=== PATIENT | female | born 1990 | race Native Hawaiian/Other Pacific Islander ===

== ENCOUNTER 2018-06-01 19:22 | Emergency (ER) | payer OTHER ==
[2018-06-01] MEDS ORDERED: ACETAMINOPHEN 500 MG TABLET PO STA (20:07)
--- NOTE | 2018-06-01 20:22 | ED Physician Documentation ---
History of Present Illness - Stated complaint Stated Complaint: MANZANARES/SORE THROAT/BODY ACHE - Chief complaint Chief Complaint: General - Additonal information Additional information: 27-year-old female presents the emergency department with 3 days of nasal congestion, ear pain, sore throat, chills, feeling feverish and body aches. Symptoms improved with antipyretics. Symptoms are described as mild. No other associated symptoms. Review of Systems Constitutional: reports: Fever, Chills, Myalgias, Fatigue Eyes: denies: Discharge Ears: reports: Ear pain Nose: reports: Rhinorrhea / runny nose, Congestion Throat: reports: Sore throat Respiratory: denies: Wheezing GI: denies: Abdominal Pain : denies: Dysuria Skin: denies: Rash PD PAST MEDICAL HISTORY - Past Medical History Past Medical History: No - Past Surgical History Past Surgical History: No - Present Medications Home Medications: Ambulatory Orders Medication Instructions Recorded Confirmed No Known Home Medications 06/01/18 06/01/18 - Allergies Allergies/Adverse Reactions: Allergies Allergy/AdvReac Type Severity Reaction Status Date / Time No Known Drug Allergies Allergy Verified 06/01/18 19:33 - Social History Does the pt smoke?: Yes Smoking Status: Former smoker Does the pt drink ETOH?: Yes Does the pt have substance abuse?: No - Immunizations Immunizations are current?: Yes PD ED PE NORMAL - General General: Alert and oriented X 3, No acute distress - HEENT HEENT: Atraumatic, PERRL, EOMI, Ears normal, Moist mucous membranes - Neck Neck: Supple, no meningeal sign, No adenopathy - Cardiac Cardiac: RRR, Strong equal pulses - Abdomen Abdomen: Soft, Non tender - Derm Derm: Normal color - Extremities Extremities: No deformity, No calf tenderness / cord - Neuro Neuro: Alert and oriented X 3, Normal speech - Psych Psych: Normal mood Results - Vitals Vitals: Vital Signs - 24 hr 06/01/18 19:30 Temperature 36.3 C L Heart Rate 65 Respiratory 16 Rate Blood Pressure 110/68 O2 Saturation 100 Oxygen O2 Source Room air - Labs Labs: Laboratory Tests 06/01/18 19:35 Group A Strep Rapid Negative PD MEDICAL DECISION MAKING - ED course ED course: The patient's symptoms are consistent with a viral process. The patient appears appropriate for discharge and ongoing outpatient management. Patient is well- hydrated, nontoxic and well-appearing and there is no clinical evidence of sepsis or bacterial etiology. I discussed warning signs and recommended returning to the emergency department for any worsening or any concerns. Departure - Departure Disposition: 01 Home, Self Care Clinical Impression: Viral URI Condition: Good Instructions: ED Viral Syndrome, ED Upper Resp Infec No Abx Tx Follow-Up: MONSERRAT NEGRON PA-C [Primary Care Provider] - Within 1 week Comments: Please return to the emergency department for worsening symptoms or any concerns
[2018-06-01 20:42] VITALS: BP 112/66
== END 2018-06-01 20:41 | disposition home or self-care (01) ==
LOC: ED 19:22
DX: J06.9 Acute upper respiratory infection, unspecified (principal); Z87.891 Personal history of nicotine dependence
CPT/HCPCS: 87070; 87430; 99282; 99283; A9270

== ENCOUNTER 2019-02-26 16:01 | Emergency (ER) | payer OTHER ==
[2019-02-26 16:14] VITALS: BP 130/79
--- NOTE | 2019-02-26 16:16 | ED Physician Documentation ---
PD HPI SKIN - Stated complaint Stated Complaint: INSECT BITES - Chief complaint Chief Complaint: Wound - History obtained from History obtained from: Patient - History of Present Illness Timing - onset: How many weeks ago (2) Timing - duration: Weeks (2she had bites or some thing with bumps and redness on left forearm and one on right thigh about 2 weeks ago that slowly resolved. They had about gone and now with swelling and redness at each of the sites since yesterday. No new injury. Not general symptoms or new sites.) Timing - details: Abrupt onset (new swelling the past day.) Location: LUE, RLE Quality / character: Painful, Discolored (red). No: Vesicular, Draining Associated symptoms: No: Fever, N/V/D Contributing factors: Insect bite /sting (she thought initial spots were bug bites. Had not been camping nor outdoors. No ticks nor other noted bugs. Had been in [place] few weeks ago [place] of [place]. no other travel.) Review of Systems Constitutional: denies: Fever, Chills, Myalgias Nose: denies: Rhinorrhea / runny nose, Congestion Throat: denies: Sore throat Respiratory: denies: Cough GI: denies: Nausea, Vomiting, Diarrhea Skin: denies: Rash PD PAST MEDICAL HISTORY - Past Medical History Cardiovascular: None Respiratory: None Neuro: None Endocrine/Autoimmune: None - Past Surgical History Past Surgical History: No - Present Medications Home Medications: Ambulatory Orders Medication Instructions Recorded Confirmed Cetirizine [ZyrTEC] 10 mg PO DAILY #15 tablet 02/26/19 Doxycycline Hyclate 100 mg PO BID #14 capsule 02/26/19 dexAMETHasone [Decadron] 4 mg PO DAILY #7 tablet 02/26/19 diphenhydrAMINE [Benadryl] 25 mg PO Q4-6H PRN #30 capsule 02/26/19 - Allergies Allergies/Adverse Reactions: Allergies Allergy/AdvReac Type Severity Reaction Status Date / Time No Known Drug Allergies Allergy Verified 06/01/18 19:33 - Social History Does the pt smoke?: Yes Smoking Status: Former smoker Does the pt drink ETOH?: Yes Does the pt have substance abuse?: No - Immunizations Immunizations are current?: Yes PD ED PE NORMAL - Vitals Vital signs reviewed: Yes - General General: Alert and oriented X 3, No acute distress, Well developed/nourished - HEENT HEENT: Pharynx benign - Neck Neck: Supple, no meningeal sign, No adenopathy - Cardiac Cardiac: RRR, No murmur - Respiratory Respiratory: Clear bilaterally - Derm Derm: Normal color, Warm and dry, Other (left forearm with 2 rounded red spots about 2 cm diameter with some mild central clearing. not vesicular. Mild induration. ) - Neuro Neuro: Alert and oriented X 3, No motor deficit, Normal speech Results - Vitals Vitals: Vital Signs - 24 hr 02/26/19 16:06 Temperature 36.5 C Heart Rate 61 Respiratory 18 Rate Blood Pressure 130/79 O2 Saturation 100 Oxygen O2 Source Room air PD MEDICAL DECISION MAKING - ED course Complexity details: considered differential (presume local reaction at sites, though the improving and now worse could suggest infectious. Has bullseye type appearance. Was not in [place] areas. Has lesions only in prior bump sites, not generally. So doubt erythema multiforme. ), d/w patient Departure - Departure Disposition: 01 Home, Self Care Clinical Impression: Local reaction to insect sting Qualifiers: Encounter type: initial encounter Injury intent: undetermined intent Qualified Code(s): T63.484A - Toxic effect of venom of other arthropod, undetermined, initial encounter Condition: Stable Record reviewed to determine appropriate education?: Yes Instructions: ED Allergic Reaction Local Other Follow-Up: [facility] [Provider Group] Prescriptions: Cetirizine [ZyrTEC] 10 mg PO DAILY #15 tablet dexAMETHasone [Decadron] 4 mg PO DAILY #7 tablet diphenhydrAMINE [Benadryl] 25 mg PO Q4-6H PRN #30 capsule PRN Reason: Itching Doxycycline Hyclate 100 mg PO BID #14 capsule Comments: Most likely causes of this or a persistent and recurrent local reaction to the initial bite or sting. Other consideration would be infection developing at this sites. For this we are treated with antihistamines steroids and antibiotics as prescribed. Use the cetirizine daily and Decadron daily. Add Benadryl every 4- 6 hours if needed for itching. Use the doxycycline twice daily for a week. If this improves over the next few days and is gone by several days then no further follow-up as needed. If it does not completely resolve or does improve and then comes back again, then follow-up with dermatology regarding other diagnostic possibilities. Discharge Date/Time: 02/26/19 16:49
[2019-02-26] MEDS ORDERED: FAMOTIDINE 20 MG TABLET PO STA (16:35)
[2019-02-26] MEDS ORDERED: CHERRY SYRUP 10 ML UDC PO ONE (16:35)
[2019-02-26] MEDS ORDERED: diphenhydrAMINE 25 MG CAPSULE PO STA (16:35)
[2019-02-26] MEDS ORDERED: CETIRIZINE 10 MG TABLET PO STA (16:35)
[2019-02-26] MEDS ORDERED: DEXAMETHASONE 10 MG/ML VIAL PO STA (16:35)
[2019-02-26] MEDS ORDERED: DOXYCYCLINE 100 MG TABLET PO STA (16:36)
== END 2019-02-26 16:49 | disposition home or self-care (01) ==
LOC: ED 16:01
DX: T63.484A Toxic effect of venom of other arthropod, undetermined, initial encounter (principal); R60.0 Localized edema; L53.9 Erythematous condition, unspecified; Z87.891 Personal history of nicotine dependence
CPT/HCPCS: 99283; 99284; A9270

== ENCOUNTER 2019-06-22 12:34 | Emergency (ER) | payer OTHER ==
[2019-06-22 12:53] VITALS: BP 107/74
[2019-06-22 13:49] LABS: RAPID STREP SCREEN POSITIVE (Negative)
--- NOTE | 2019-06-22 14:01 | ED Physician Documentation ---
History of Present Illness - Stated complaint Stated Complaint: MANZANARES/BODY ACHES - Chief complaint Chief Complaint: Heent - History obtained from History obtained from: Patient - History of Present Illness Timing: How many days ago (3) Pain level max: 6 Pain level now: 5 - Additonal information Additional information: 29-year-old female presents to the emergency department with body aches, sore throat and fever for the past 3 days. Nothing makes it better or worse. No vomiting. No abdominal pain. Minimal cough. She is not , breast- feeding or trying to become . No diarrhea. No constipation. Review of Systems Constitutional: reports: Fever Throat: reports: Sore throat GI: denies: Vomiting : denies: Now EGA Skin: denies: Rash PD PAST MEDICAL HISTORY - Past Medical History Cardiovascular: None Respiratory: None Neuro: None Endocrine/Autoimmune: None - Past Surgical History Past Surgical History: No - Present Medications Home Medications: Ambulatory Orders Medication Instructions Recorded Confirmed Cetirizine [ZyrTEC] 10 mg PO DAILY #15 tablet 02/26/19 Doxycycline Hyclate 100 mg PO BID #14 capsule 02/26/19 dexAMETHasone [Decadron] 4 mg PO DAILY #7 tablet 02/26/19 diphenhydrAMINE [Benadryl] 25 mg PO Q4-6H PRN #30 capsule 02/26/19 Penicillin V Potassium 500 mg PO Q6HR #40 tablet 06/22/19 - Allergies Allergies/Adverse Reactions: Allergies Allergy/AdvReac Type Severity Reaction Status Date / Time No Known Drug Allergies Allergy Verified 06/01/18 19:33 - Social History Does the pt smoke?: Yes Smoking Status: Former smoker Does the pt drink ETOH?: Yes Does the pt have substance abuse?: No - Immunizations Immunizations are current?: Yes - POLST Patient has POLST: No PD ED PE NORMAL - Vitals Vital signs reviewed: Yes - General General: Alert and oriented X 3, No acute distress, Well developed/nourished - HEENT HEENT: PERRL, Ears normal, Moist mucous membranes, Pharynx benign, Other ([employer]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 Uvula midline. Normal phonation. No trismus.) - Neck Neck: Supple, no meningeal sign, Other (Shotty anterior lymphadenopathy) - Cardiac Cardiac: RRR, Strong equal pulses - Respiratory Respiratory: No respiratory distress, Clear bilaterally - Abdomen Abdomen: Soft, Non tender, Non distended - Derm Derm: Warm and dry, No rash - Neuro Neuro: Alert and oriented X 3 - Psych Psych: Normal mood, Normal affect Results - Vitals Vitals: Vital Signs - 24 hr 06/22/19 06/22/19 12:50 13:53 Temperature 37.0 C 37.0 C Heart Rate 79 Respiratory 18 Rate Blood Pressure 107/74 O2 Saturation 98 Oxygen O2 Source Room air - Labs Labs: Laboratory Tests 06/22/19 06/22/19 13:30 13:30 Influenza A (Rapid) Negative Influenza B (Rapid) POSITIVE H Group A Strep Rapid POSITIVE H PD MEDICAL DECISION MAKING - ED course Complexity details: reviewed results, considered differential, d/w patient ED course: Patient presents to the emergency department and is positive for influenza B and strep pharyngitis. She is out of the treatment window for Xofluza or Tamiflu. We will treat her for the strep pharyngitis. She is well-appearing, nontoxic. Patient counseled regarding signs and symptoms for which I believe and urgent re-evaluation would be necessary. Patient with good understanding of and agreement to plan and is comfortable going home at this time This document was made in part using voice recognition software. While efforts are made to proofread this document, sound alike and grammatical errors may occur. Departure - Departure Disposition: 01 Home, Self Care Clinical Impression: Influenza B, Strep pharyngitis Condition: Good Instructions: ED Flu, ED Strep Pharyngitis Conf Follow-Up: TONEY BARNES MD [Primary Care Provider] - Within 1 week Prescriptions: Penicillin V Potassium 500 mg PO Q6HR #40 tablet Comments: Take all antibiotics until gone. Return if you worsen. Follow-up with your doctor for further care. You have tested positive for influenza B and strep pharyngitis today. Forms: Activity restrictions
== END 2019-06-22 14:07 | disposition home or self-care (01) ==
LOC: ED 12:34
DX: J11.1 Influenza due to unidentified influenza virus with other respiratory manifestations (principal); J02.0 Streptococcal pharyngitis; Z87.891 Personal history of nicotine dependence
CPT/HCPCS: 87275; 87276; 87430; 99283

== ENCOUNTER 2019-12-31 12:59 | Emergency (ER) | payer OTHER ==
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
[2019-12-31] MEDS ORDERED: IBUPROFEN 600 MG TABLET PO STA (14:35)
[2019-12-31] MEDS ORDERED: ACETAMINOPHEN 325 MG TABLET PO STA (14:35)
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
[2019-12-31 16:02] VITALS: BP 105/77
== END 2019-12-31 16:02 | disposition home or self-care (01) ==
LOC: ED 12:59
DX: S16.1XXA Strain of muscle, fascia and tendon at neck level, initial encounter (principal); S29.012A Strain of muscle and tendon of back wall of thorax, initial encounter; G44.319 Acute post-traumatic headache, not intractable; V43.62XA Car passenger injured in collision with other type car in traffic accident, initial encounter; Y92.410 Unspecified street and highway as the place of occurrence of the external cause; Z87.891 Personal history of nicotine dependence
CPT/HCPCS: 70450; 72125; 72128; 99284; A9270

== ENCOUNTER 2020-05-07 10:41 | Emergency (ER) | payer OTHER ==
--- NOTE | 2020-05-07 11:47 | XRAY Report ---
PROCEDURE: Foot 3 View LT INDICATIONS: Pain. something in foot TECHNIQUE: 3 views of the foot were acquired. COMPARISON: None FINDINGS: Bones: No fractures or dislocations. No suspicious bony lesions. Soft tissues: No tibiotalar joint effusion. Achilles tendon appears normal. No radiodense foreign bodies. IMPRESSION: No fracture. No osseous lesion. If there is continued clinical concern for pathology, then repeat kiki in film radiographs (7-10 days) or advanced imaging (CT, MR, bone scan) should be considered for furt her evaluation. Reviewed by: Mariely Bowers MD, PhD on 05/07/2020 11:46 AM [facility] Approved by: Mariely Bowers MD, PhD on 05/07/2020 11:46 AM [facility] Station ID: [id number]
--- NOTE | 2020-05-07 12:05 | ED Physician Documentation ---
PD HPI LOWER EXT INJURY - Stated complaint Stated Complaint: LT FT PX - Chief complaint Chief Complaint: Ext Problem - History obtained from History obtained from: Patient - History of Present Illness PD HPI LOW EXT INJURY LOCATION: Right, Foot Type of injury: Other (unknown) Where injury occurred: Home Timing - onset: Yesterday Timing - duration: Days (1) Timing - details: Abrupt onset, Still present Improved by: Rest, Immobilization Worsened by: Moving, Palpating Associated symptoms: No: Weakness, Numbness, Tingling, Swelling, Discolored Contributing factors: No: Anticoagulated Similar symptoms before: Has not had sx before Recently seen: Not recently seen - Additional information Additional information: Previously L 29-year-old female has developed pain on the heel of her right foot. She noticed this first when she went to step down out of bed yesterday morning. She does not have any known trauma to the area she does work at the [employer] and is on her feet all day at work. Yesterday she did not have to work and she would not be able to. She states that she is sad most of the day yesterday. 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 HEENT: None Psych: None Musculoskeletal: None Derm: None - Past Surgical History Past Surgical History: No - Present Medications Home Medications: Ambulatory Orders Medication Instructions Recorded Confirmed Cetirizine [ZyrTEC] 10 mg PO DAILY #15 tablet 02/26/19 Doxycycline Hyclate 100 mg PO BID #14 capsule 02/26/19 dexAMETHasone [Decadron] 4 mg PO DAILY #7 tablet 02/26/19 diphenhydrAMINE [Benadryl] 25 mg PO Q4-6H PRN #30 capsule 02/26/19 Penicillin V Potassium 500 mg PO Q6HR #40 tablet 06/22/19 Hydrocodone/Acetaminophen [[place] 1 each PO Q6H PRN #12 tablet 12/31/19 5-325 Tablet] Tizanidine HCl 4 mg PO TID PRN #15 capsule 12/31/19 - Allergies Allergies/Adverse Reactions: Allergies Allergy/AdvReac Type Severity Reaction Status Date / Time No Known Drug Allergies Allergy Verified 05/07/20 10:49 - Social History Does the pt smoke?: Yes Smoking Status: Current every day smoker Does the pt drink ETOH?: Yes Does the pt have substance abuse?: No - Immunizations Immunizations are current?: Yes - POLST Patient has POLST: No PD ED PE NORMAL - Vitals Vital signs reviewed: Yes (normal ) - General General: Alert and oriented X 3, No acute distress, Well developed/nourished - HEENT HEENT: Atraumatic, PERRL, EOMI - Respiratory Respiratory: No respiratory distress - Derm Derm: Normal color, Warm and dry, No rash - Extremities Extremities: No deformity, No edema, Other (There is no palpable mass or defect to the skin of the foot or deeper. The heal is without bruising, swelling or specific tenderness. I do not see evidence of a plantars wart. ) - Neuro Neuro: Alert and oriented X 3, overedger 2-12 intact, No motor deficit, No sensory deficit, Normal speech Eye Opening: Spontaneous Motor: Obeys Commands Verbal: Oriented GCS Score: 15 - Psych Psych: Normal mood, Normal affect Results - Vitals Vitals: Vital Signs - 24 hr 05/07/20 10:45 Temperature 36.8 C Heart Rate 61 Respiratory 15 Rate Blood Pressure 118/67 O2 Saturation 100 Oxygen O2 Source Room air - Rads (name of study) Right foot Radiology: Prelim report reviewed (Impression: No fracture. No osseous lesion.), EMP read indepedently, See rad report PD MEDICAL DECISION MAKING - ED course Complexity details: reviewed results, re-evaluated patient, considered differential, d/w patient ED course: 29 y/o female stepped down on her heal yesterday morning and has had pain since. There is no repetitive trauma to the area but plantar fasciitis is high on the differential. We have diagnosed this and given the patient instructions and have written a note for 3 days off work. Departure - Departure Disposition: 01 Home, Self Care Clinical Impression: Plantar fasciitis of right foot Condition: Stable Instructions: ED Plantar Fasciitis Follow-Up: SUNITA HUGHES ARNP [Primary Care Provider] - Forms: Activity restrictions
[2020-05-07 12:25] VITALS: BP 118/75
== END 2020-05-07 12:25 | disposition home or self-care (01) ==
LOC: ED 10:41
DX: M72.2 Plantar fascial fibromatosis (principal); F17.200 Nicotine dependence, unspecified, uncomplicated
CPT/HCPCS: 99282; 99283

== ENCOUNTER 2020-07-26 17:00 | Emergency (ER) | payer OTHER ==
[2020-07-26 17:05] VITALS: BP 119/78
--- NOTE | 2020-07-26 17:31 | ED Physician Documentation ---
History of Present Illness - Stated complaint Stated Complaint: BACK PX, FELL OFF BED - Chief complaint Chief Complaint: Back Pain - History obtained from History obtained from: Patient - Additonal information Additional information: 22-year-old woman, previously healthy presents with right shoulder and neck pain after slipping out of her four foot bed yesterday and hyperflexing her neck. She had immediate discomfort to her neck that gradually resolved and she went back to sleep. This morning she had worsening pain that was refractory to ibuprofen. Pain is aching and constant radiating from the right neck to right shoulder, associated with mild muscle spasm. denies neuro deficits or other symptoms. Patient called out from work today and is requesting work note. 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 : None HEENT: None Psych: None Musculoskeletal: None Derm: None - Past Surgical History Past Surgical History: No - Present Medications Home Medications: Ambulatory Orders Medication Instructions Recorded Confirmed No Known Home Medications 07/26/20 07/26/20 - Allergies Allergies/Adverse Reactions: Allergies Allergy/AdvReac Type Severity Reaction Status Date / Time No Known Drug Allergies Allergy Verified 07/26/20 17:02 - Social History Does the pt smoke?: Yes Smoking Status: Current every day smoker Does the pt drink ETOH?: Yes Does the pt have substance abuse?: No - Immunizations Immunizations are current?: Yes - POLST Patient has POLST: No PD ED PE NORMAL - Vitals Vital signs reviewed: Yes - General General: Alert and oriented X 3, No acute distress - HEENT HEENT: Atraumatic, PERRL, EOMI - Neck Neck: No bony TTP, Other (R trapezius muscle mildly ttp) - Back Back: No spinal TTP - Psych Psych: Normal mood, Normal affect Results - Vitals Vitals: Vital Signs - 24 hr 07/26/20 17:02 Temperature 36.4 C L Heart Rate 62 Respiratory 16 Rate Blood Pressure 119/78 O2 Saturation 100 Oxygen O2 Source Room air PD MEDICAL DECISION MAKING - ED course ED course: 30yF p/w uncomplicated whiplash injury without red flag features. return precautions [place]ure - Departure Disposition: 01 Home, Self Care Clinical Impression: Muscle strain Condition: Good Instructions: ED Sprain Strain Neck Comments: You have been seen in the emergency department for a whiplash injury. Do the range of motion exercises that we discussed and make sure that you give your body rest and time to heal. Take ibuprofen 600 mg every 6 hours as needed for pain. Return to the ED for any new or worsening symptoms or other concerns. Hope you feel better! Forms: Activity restrictions
[2020-07-26] MEDS ORDERED: KETOROLAC 30 MG/ML VIAL IM STA (17:32)
== END 2020-07-26 17:51 | disposition home or self-care (01) ==
LOC: ED 17:00
DX: S13.4XXA Sprain of ligaments of cervical spine, initial encounter (principal); S16.1XXA Strain of muscle, fascia and tendon at neck level, initial encounter; M25.511 Pain in right shoulder; W06.XXXA Fall from bed, initial encounter; Y92.003 Bedroom of unspecified non-institutional (private) residence as the place of occurrence of the external cause; F17.200 Nicotine dependence, unspecified, uncomplicated
CPT/HCPCS: 96372; 99283; 99284

== ENCOUNTER 2020-12-23 17:15 | Emergency (ER) | payer OTHER ==
--- NOTE | 2020-12-23 18:19 | ED Physician Documentation ---
PD HPI SKIN - Stated complaint Stated Complaint: RED SPOTS ON LEG/SWELLING - Chief complaint Chief Complaint: General - History obtained from History obtained from: Patient - History of Present Illness Timing - onset: How many days ago (4) Timing - details: Abrupt onset Location: RLE Quality / character: Itchy, Raised, Swelling Associated symptoms: No: Fever Contributing factors: Unknown Recently seen: Not recently seen - Additional information Additional information: c/o 4 days of pruritic lesions RLE. She suspects these are due to insect bites although no apparent exposure. 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 : None HEENT: None Psych: None Musculoskeletal: None Derm: None - Past Surgical History Past Surgical History: No - Present Medications Home Medications: Ambulatory Orders Medication Instructions Recorded Confirmed Hydrocortisone Valerate 1 film TP BID #15 gm 12/23/20 hydrOXYzine PAMOATE [Vistaril] 25 mg PO Q6H PRN #14 12/23/20 - Allergies Allergies/Adverse Reactions: Allergies Allergy/AdvReac Type Severity Reaction Status Date / Time No Known Drug Allergies Allergy Verified 12/23/20 17:32 - Social History Does the pt smoke?: Yes Smoking Status: Current every day smoker Does the pt drink ETOH?: Yes Does the pt have substance abuse?: No - Immunizations Immunizations are current?: Yes - POLST Patient has POLST: No PD ED PE NORMAL - Vitals Vital signs reviewed: Yes - General General: Alert and oriented X 3, No acute distress - Extremities Extremities: No edema PD ED PE EXPANDED - Extremities BOBBY LE visual: 1 - swelling (3cm diameter raised erythema without fluctuance or discharge.) 2 - swelling (2 cm diameter raised erythema without fluctuance or discharge; nontender) Results - Vitals Vitals: Oxygen O2 Source Room air PD MEDICAL DECISION MAKING - ED course Complexity details: considered differential, d/w patient ED course: two discrete lesions on RLE whose appearance is c/w insect bite or sting; they are pruritic and do not have characteristics s/o cellulitis. she says she also had a similar lesion on LLE which has resolved; the presence of multiple such le sions is also inconsistent with infectious process, and lack of pain/tenderness inconsistent with erythema nodosum. she is given vistaril for the pruritis and rx for topical steroid Departure - Departure Disposition: 01 Home, Self Care Clinical Impression: Rash Condition: Good Instructions: ED Erythema Prescriptions: Hydrocortisone Valerate 1 film TP BID #15 gm hydrOXYzine PAMOATE [Vistaril] 25 mg PO Q6H PRN #14 PRN Reason: Itching Discharge Date/Time: 12/23/20 18:53
[2020-12-23] MEDS ORDERED: hydrOXYzine PAMOATE 25 MG CAPSULE PO STA (18:35)
[2020-12-23 18:51] VITALS: BP 115/78
== END 2020-12-23 18:53 | disposition home or self-care (01) ==
LOC: ED 17:15
DX: L29.9 Pruritus, unspecified (principal); F17.200 Nicotine dependence, unspecified, uncomplicated
CPT/HCPCS: 99282; 99283; A9270

== ENCOUNTER 2021-04-18 17:09 | Emergency (ER) | payer OTHER ==
[2021-04-18 17:34] LABS: BILIRUBIN,URINE NEGATIVE (NEGATIVE); GLUCOSE, URINE (UA) NEGATIVE (NEGATIVE); KETONES,URINE (UA) NEGATIVE (NEGATIVE); LEUKOCYTE ESTERASE, URINE NEGATIVE (NEGATIVE); NITRITE,URINE NEGATIVE (NEGATIVE); OCCULT BLOOD,URINE LARGE (NEGATIVE); PROTEIN,URINE NEGATIVE (NEGATIVE); UROBILINOGEN,URINE 0.2 (NORMAL) E.U./dL (NORMAL)
[2021-04-18 17:36] LABS: CLARITY,URINE HAZY (CLEAR); HCG UR QUAL POSITIVE
[2021-04-18 17:44] LABS: BASOPHILS % (AUTO) 0.3 %; EOSINOPHILS # (AUTO) 0.2 10^3/uL (0.0-0.7); EOSINOPHILS % (AUTO) 2.7 %; HCT - HEMATOCRIT 39.6 % (37.0-47.0); HGB - HEMOGLOBIN 12.7 g/dL (12.0-16.0); LYMPHOCYTES # (AUTO) 2.2 10^3/uL (1.5-3.5); MEAN CORPUSCULAR HEMOGLOBIN 26.2 pg (27.0-31.0); MEAN CORPUSCULAR HGB CONC 32.1 g/dL (32.0-36.0); MEAN CORPUSCULAR VOLUME 81.6 fL (81.0-99.0); MEAN PLATELET VOLUME 9.6 fL (7.9-10.8); MONOCYTES # (AUTO) 0.5 10^3/uL (0.0-1.0); MONOCYTES % (AUTO) 8.1 %; NEUTROPHILS # (AUTO) 3.1 10^3/uL (1.5-6.6); NEUTROPHILS % (AUTO) 51.7 %; PLT - PLATELET COUNT 259 10^3/uL (130-450); RED BLOOD COUNT 4.85 10^6/uL (4.20-5.40); RED CELL DISTRIBUTION WIDTH 12.7 % (12.0-15.0)
[2021-04-18 17:50] LABS: BACTERIA,URINE Few /HPF (None Seen); SQUAMOUS EPITHELIAL CELL,UR FEW Squamous (<= Few); WBC,URINE 0-3 /HPF (0-5)
[2021-04-18 17:57] LABS: ALBUMIN 4.6 g/dL (3.2-5.5); ALBUMIN/GLOBULIN RATIO 1.4 (1.0-2.2); BILIRUBIN,TOTAL 0.6 mg/dL (0.2-1.0); CALCIUM 9.3 mg/dL (8.5-10.3); CREATININE 0.8 mg/dL (0.4-1.0); POTASSIUM 3.7 mmol/L (3.5-5.0); TOTAL PROTEIN 7.9 g/dL (6.7-8.2)
[2021-04-18 18:03] VITALS: BP 113/69
--- NOTE | 2021-04-18 18:14 | ED Physician Documentation ---
History of Present Illness - Stated complaint Stated Complaint: FEMALE /PX/CLOTS - Chief complaint Chief Complaint: Abd Pain - Additonal information Additional information: 30-year-old female presents with one week of vaginal spotting and lower abdominal pain Patient states she was due for her period about a week prior to this. She is not on control. She also has some lower abdominal pain described as mild. She has no fever chills, Nausea, vomiting, dysuria or urinary symptoms. Review of Systems Ten Systems: 10 systems reviewed and negative GI: reports: Abdominal Pain. denies: Nausea, Vomiting : reports: Vaginal bleeding, Missed period. 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 : None HEENT: None Psych: None Musculoskeletal: None Derm: None - Past Surgical History Past Surgical History: No - Present Medications Home Medications: Ambulatory Orders Medication Instructions Recorded Confirmed Hydrocortisone Valerate 1 film TP BID #15 gm 12/23/20 hydrOXYzine PAMOATE [Vistaril] 25 mg PO Q6H PRN #14 12/23/20 - Allergies Allergies/Adverse Reactions: Allergies Allergy/AdvReac Type Severity Reaction Status Date / Time No Known Drug Allergies Allergy Verified 04/18/21 17:12 - Social History Does the pt smoke?: No Smoking Status: Never smoker Does the pt drink ETOH?: Yes Does the pt have substance abuse?: No - Immunizations Immunizations are current?: Yes - POLST Patient has POLST: No PD ED PE NORMAL - Vitals Vital signs reviewed: Yes - General General: Alert and oriented X 3, No acute distress, Well developed/nourished - HEENT HEENT: Atraumatic, Pharynx benign - Neck Neck: Supple, no meningeal sign, No JVD - Cardiac Cardiac: RRR, No murmur - Respiratory Respiratory: No respiratory distress, Clear bilaterally - Abdomen Abdomen: Normal bowel sounds, Soft, Non tender, Non distended - Back Back: No CVA TTP - Derm Derm: Normal color, Warm and dry, No rash - Neuro Neuro: Alert and oriented X 3 Eye Opening: Spontaneous Motor: Obeys Commands Verbal: Oriented GCS Score: 15 - Psych Psych: Normal mood, Normal affect Results - Vitals Vitals: Vital Signs - 24 hr 04/18/21 04/18/21 17:12 18:00 Temperature 36.5 C 98.4 C H Heart Rate 72 75 Respiratory 16 16 Rate Blood Pressure 130/86 H 113/69 O2 Saturation 100 100 Oxygen O2 Source Room air - Labs Labs: Laboratory Tests 04/18/21 04/18/21 04/18/21 17:10 17:28 17:28 WBC RBC Hgb Hct MCV MCH MCHC RDW Plt Count MPV Neut # (Auto) Lymph # (Auto) [place] # (Auto) Eos # (Auto) Baso # (Auto) Absolute Nucleated RBC Nucleated RBC % Sodium Potassium Chloride Carbon Dioxide Anion Gap BUN Creatinine Estimated GFR (MDRD) Glucose Calcium Total Bilirubin AST ALT Alkaline Phosphatase Total Protein Albumin Globulin Albumin/Globulin Ratio Lipase HCG, Quant 35.98 Urine Color YELLOW Urine Clarity HAZY Urine pH 7.0 Ur Specific [place] 1.020 Urine Protein NEGATIVE Urine Glucose (UA) NEGATIVE Urine Ketones NEGATIVE Urine Occult Blood LARGE H Urine Nitrite NEGATIVE Urine Bilirubin NEGATIVE Urine Urobilinogen 0.2 (NORMAL) Ur Leukocyte Esterase NEGATIVE Urine RBC 6-10 H Urine WBC 0-3 Ur Squamous Epith Cells FEW Squamous Urine Bacteria Few Ur Microscopic Review INDICATED Urine Culture Comments NOT INDICATED Urine HCG, Qual POSITIVE Blood Type 04/18/21 04/18/21 04/18/21 17:40 17:40 17:40 WBC 6.0 RBC 4.85 Hgb 12.7 Hct 39.6 MCV 81.6 MCH 26.2 L MCHC 32.1 RDW 12.7 Plt Count 259 MPV 9.6 Neut # (Auto) 3.1 Lymph # (Auto) 2.2 [place] # (Auto) 0.5 Eos # (Auto) 0.2 Baso # (Auto) 0.0 Absolute Nucleated RBC 0.00 Nucleated RBC % 0.0 Sodium 138 Potassium 3.7 Chloride 101 Carbon Dioxide 26 Anion Gap 11.0 BUN 14 Creatinine 0.8 Estimated GFR (MDRD) 85 L Glucose 104 H Calcium 9.3 Total Bilirubin 0.6 AST 18 ALT 13 Alkaline Phosphatase 50 Total Protein 7.9 Albumin 4.6 Globulin 3.3 Albumin/Globulin Ratio 1.4 Lipase 32 HCG, Quant Urine Color Urine Clarity Urine pH Ur Specific [place] Urine Protein Urine Glucose (UA) Urine Ketones Urine Occult Blood Urine Nitrite Urine Bilirubin Urine Urobilinogen Ur Leukocyte Esterase Urine RBC Urine WBC Ur Squamous Epith Cells Urine Bacteria Ur Microscopic Review Urine Culture Comments Urine HCG, Qual Blood Type O POSITIVE PD MEDICAL DECISION MAKING - ED course Complexity details: reviewed results, re-evaluated patient, considered differential, d/w patient ED course: Pt presented with vaginal spotting and mild lower abdominal pain and was found to have a positive test. We proceeded w/ vaginal US which showed a very early IUP, unable to determine viability yet. She also had right adnexal cyst. Pt was advised of findings and recommended that she see her PCP next week for repeat hcg to trend levels, and would recommend repeat US in about 2 weeks. She was given information on expectant management early in and return precautions. Departure - Departure Disposition: Home, Self Care Clinical Impression: Bleeding in early Instructions: Bleeding Early Preg Comments: You presented with vaginal bleeding. We checked a hormone level which was positive for very early . As we discussed, we obtained an ultrasound that showed an intrauterine , but it is very early and we are not yet able to determine viability or see a heart rate because it is so early in the . Please call your primary doctor on Tuesday and plan to repeat your hcg levels next week and I'd recommend a repeat ultrasound in about 2 weeks. Return to the ER if you develop increased pain, fever, vomiting, or vaginal bleeding > 2 pads/hour x 2 hours, or other new concerns.
--- NOTE | 2021-04-18 19:25 | Ultrasound Report ---
PROCEDURE: OB First Trimester w/TV INDICATIONS: vag bleed, + preg OUTSIDE/PRIOR DATING DATA: Last menstrual period (LMP): 03/05/2021. LMP-based estimated date of delivery (MARCI): 12/10/2021. First dating scan (date and location): 04/18/2021. Estimated date of delivery (MARCI) from first dating scan: Not applicable. TECHNIQUE: Real-time scanning was performed of the fetus and maternal pelvic organs, with image documentation. Endovaginal scanning was also performed to better visualize the fetus and maternal ovaries. COMPARISON: None FINDINGS: Examination of pelvis shows small saclike structure within endometrium and measures 2 mm in size. No pole or heart rate is detected. Estimated gestational age based on mean gestational sac s ize is 4 weeks, 6 days. Measurement variability in dating: +/- 4 weeks by LMP, +/- 7 days by mean sac diameter (use before 6 weeks gestation if crown-rump length not able to be measured), +/- 5 days by crown-rump length (6-12 weeks gestation). Maternal organs: Heterogeneous myometrial echotexture is seen. No discrete uterine fibroid. Left ovar y is within normal limits. 7 x 7 x 5 mm corpus luteal cyst is seen in right ovary. Large exophytic cy st is noted in right ovary and measures 5.5 x 4 x 5.8 cm in size. IMPRESSION: 1. Finding may represent very early intrauterine gestation with small gestational sac seen. No pole or cardiac activity is detected. Follow-up with serial beta-hCG levels and follow-up ultra sound is recommended for evaluation of viability. 2. Right ovarian cyst and right ovarian corpus luteum as above. Left ovary is within normal limits. Reviewed by: Ramiro Magaña MD on 04/18/2021 7:23 PM PDT Approved by: Ramiro Magaña MD on 04/18/2021 7:23 PM PDT Station ID: [id number]
== END 2021-04-18 19:52 | disposition home or self-care (01) ==
LOC: ED 17:09
DX: O20.9 Hemorrhage in early pregnancy, unspecified (principal); Z3A.00 Weeks of gestation of pregnancy not specified
CPT/HCPCS: 36415; 80053; 81001; 81003; 81025; 83690; 84702; 85025; 86900; 86901; 87086; 99282; 99284